=== PATIENT | female | born 1985 | race Caucasian/White ===

== ENCOUNTER → 2018-05-04 | Outpatient (CLI) | payer BC ==
[2018-05-04 11:15] LABS: HCT 35.8 % (34.0-46.0); HGB 12.1 gm/dL (11.4-16.0); MCHC 33.7 g/dL (31.0-37.0); Mean Platelet Volume 7.4; Platelet Count 164 k/uL (150-450); RBC 3.77 m/uL (3.80-5.40); RDW 13.1 % (11.5-15.5)
== END | disposition home or self-care (01) ==
LOC: LABWHC1 09:54
PROVIDERS: ATTEND Obstetrics & Gynecology
DX: Z34.82 Encounter for supervision of other normal pregnancy, second trimester (principal)
CPT/HCPCS: 36415; 82950; 85027

== ENCOUNTER 2018-08-23 06:00 | Inpatient (IN) | payer BC ==
[2018-08-23] MEDS ORDERED: CARBOPROST TROMETHAMINE 250 MCG/ML 1 ML AMP IM PRN ×2 (06:23→12:18)
[2018-08-23] MEDS ORDERED: LACTATED RINGERS 1,000 ML IV SCH (06:23)
[2018-08-23] MEDS ORDERED: METHYLERGONOVINE 0.2 MG/ML 1 ML AMP IM PRN ×2 (06:23→12:18)
[2018-08-23] MEDS ORDERED: OXYTOCIN 20 UNITS/1000 ML NS 1,000 ML IV SCH ×4 (06:23→16:45)
[2018-08-23] MEDS ORDERED: TERBUTALINE 1 MG/ML VIAL SQ PRN ×2 (06:23→12:18)
[2018-08-23] MEDS ORDERED: LIDOCAINE 0.5% (PF) 5 MG/ML (50 ML SDV) SQ PRN ×2 (06:23→12:18)
[2018-08-23] MEDS ORDERED: OXYTOCIN 10 UNIT/ML 1 ML VIAL IM PRN ×2 (06:23→12:18)
--- NOTE | 2018-08-23 06:25 | P.HPOB ---
History of Present Illness H&P Date: 08/23/18 Chief Complaint: Patient is presenting for requested induction of labor This patient is a pleasant 32-year-old 2 para 1 female estimated date of confinement 08/24/2018 estimated gestational age 39-6/7 weeks who presents to labor and delivery for requested induction of labor. Patient's care has been uncomplicated. Patient is uncomfortable request delivery at this time. Review of Systems Gastrointestinal: Reports heartburn Genitourinary: Reports Menstruation: Reports amenorrhea Past Medical History Past Medical History: No Reported History History of Any Multi-Drug Resistant Organisms: None Reported Past Surgical History: No Surgical Hx Reported Past Anesthesia/Blood Transfusion Reactions: No Reported Reaction Past Psychological History: ADD/ADHD, Depression Smoking Status: Former smoker Past Alcohol Use History: None Reported Past Drug Use History: None Reported Medications and Allergies Home Medications Medication Instructions Recorded Confirmed Type Hme-Cuap-Yfxsb Acid 1 each PO DAILY 04/20/14 04/20/14 History [-U Capsule] Acetaminophen-Codeine 300-30mg 1 - 2 each PO Q4HR PRN #30 tab 04/23/14 Rx [Tylenol w/codeine #3] Ibuprofen [Motrin] 600 mg PO Q6HR PRN #40 tab 04/23/14 Rx Allergies Allergy/AdvReac Type Severity Reaction Status Date / Time No Known Allergies Allergy Verified 04/20/14 16:47 Exam - OBG Physical Exam Abdomen: bowel sounds normal, no diffuse tenderness, no bruit present, no guarding noted, no hepatomegaly, no splenomegaly, no mass Vulva: both: normal Vagina: normal moisture, no discharge Cervix: no lesion (Cervix in the office is 1-2 cm dilated 50% effaced.), no discharge Uterus: enlarged (Fundal height is 38 cm.) Results blood work shows she is O positive, rubella immune, RPR nonreactive, hepatitis B negative, HIV is nonreactive, ultrasounds have been normal, group B strep was negative, Glucola was normal. Assessment and Plan (1) 40 weeks gestation of Narrative/Plan: This is a pleasant 32-year-old 2 para 1 female 39-6/7 weeks gestation who presents to labor and delivery for requested induction of labor plan is induction of labor and anticipate vaginal delivery. Current Visit: Yes Status: Acute Code(s): Z3A.40 - 40 WEEKS GESTATION OF SNOMED Code(s): 32927370 (2) Elective induction of labor planned Current Visit: Yes Status: Acute Code(s): AEA4364 - SNOMED Code(s): 543684970
[2018-08-23 06:40] LABS: Basophils # (A) 0.1 k/uL (0-0.2); Basophils % (A) 1 %; Eosinophils # (A) 0.2 k/uL (0-0.7); Eosinophils % (A) 2 %; HCT 40.2 % (34.0-46.0); HGB 13.2 gm/dL (11.4-16.0); Lymphocytes # (A) 2.6 k/uL (1.0-4.8); Lymphocytes % (A) 25 %; MCHC 32.8 g/dL (31.0-37.0); MCV 94.6 fL (80.0-100.0); Mean Platelet Volume 8.2; Monocytes # (A) 0.5 k/uL (0-1.0); Monocytes % (A) 5 %; Neutrophils # (A) 6.9 k/uL (1.3-7.7); Neutrophils % (A) 66 %; Platelet Count 176 k/uL (150-450); RBC 4.25 m/uL (3.80-5.40); RDW 13.9 % (11.5-15.5); WBC 10.5 k/uL (3.8-10.6)
[2018-08-23] MEDS ORDERED: SENNOSIDES-DOCUSATE SODIUM 1 EACH TAB PO SCH (11:23)
[2018-08-23] MEDS ORDERED: ACETAMINOPHEN TAB 325 MG TAB PO PRN ×2 (11:23→16:41)
[2018-08-23] MEDS ORDERED: LANOLIN CREAM 5 GM TUBE TOPICAL PRN ×2 (11:23→16:41)
[2018-08-23] MEDS ORDERED: SIMETHICONE 80 MG CHEWABLE PO PRN ×2 (11:23→16:41)
[2018-08-23] MEDS ORDERED: WITCH HAZEL 1 EACH MED..PAD TOPICAL PRN ×2 (11:23→16:41)
[2018-08-23] MEDS ORDERED: diphenhydrAMINE 50 MG/ML 1 ML VIAL IVP PRN ×2 (11:23→16:41)
[2018-08-23] MEDS ORDERED: BENZOCAINE/MENTHOL SPRAY 1 GM/SPRAY AEROSOL TOPICAL PRN ×2 (11:23→16:41)
[2018-08-23] MEDS ORDERED: IBUPROFEN 600 MG TAB PO PRN (11:23)
[2018-08-23] MEDS ORDERED: ZOLPIDEM 5 MG TAB PO PRN ×2 (11:23→16:41)
[2018-08-23] MEDS ORDERED: BISACODYL 10 MG SUPP RECTAL PRN ×2 (11:23→16:41)
[2018-08-23] MEDS ORDERED: HYDROCORTISONE 2.5% RECTAL CREAM 30 GM TUBE RECTAL PRN ×2 (11:23→16:41)
[2018-08-23] MEDS ORDERED: diphenhydrAMINE 25 MG CAP PO PRN ×2 (11:23→16:41)
[2018-08-23] MEDS ORDERED: BUTORPHANOL 1 MG/ML 1 ML VIAL IV PRN (11:44)
[2018-08-23] MEDS: LACTATED RINGERS 1,000 ML IV SCH ×2 (13:00→14:00)
[2018-08-23] MEDS ORDERED: SODIUM CHLORIDE 0.9% 100 ML BAG ONE (13:39)
[2018-08-23] MEDS ORDERED: fentaNYL (PF) 50 MCG/ML 5 ML AMP ONE (13:39)
[2018-08-23] MEDS ORDERED: ROPIVACAINE 5MG/ML 20ML VIAL ONE (13:39)
[2018-08-23] MEDS ORDERED: ROPIVACAINE 100 MG, fentaNYL (PF) 200 MCG in SODIUM CHLORIDE 0.9% 76 ML EPIDURAL ONE (14:31)
[2018-08-23] MEDS: IBUPROFEN 600 MG TAB PO PRN ×2 (17:40→23:49)
--- NOTE | 2018-08-23 18:25 | P.PROBDLV ---
Vaginal Delivery Note - . Vaginal Delivery Note: Normal vaginal delivery viable male infant Apgars 9 and 9 delivery time is 1630 hrs. Please see dictated H&P for intimate details of this patient's admission. In brief summary this is a pleasant 32-year-old 2 para 1 female 39-6/7 weeks gestation was admitted to labor and delivery for requested induction of labor. Patient is admitted and she is 1-2 cm dilated. She is artificial rupture membranes for clear fluid. Labor is induced with Pitocin per protocol. Labor progresses and she does receive a dose of Stadol and then an epidural for pain control. Patient thereafter quickly gets to complete. She pushes the head to the perineum and the posterior perineum was supported. We have controlled delivery of the infant's head over the intact perineum. Mouth and nares are bulb suctioned. There is no evidence of a nuchal cord. Gentle downward traction we then have delivery anterior posterior shoulder and rest this infant's body. This is a vigorous viable male infant Apgars are 9 and 9 delivery time was 1630 hrs. After delivery of the is late mother's abdomen. After the cord is nonpulsating is doubly clamped and cut. It appears to be trivascular. Placenta spontaneously delivered intact. Estimated blood loss is 100 mL. Inspection of the perineum shows no lacerations and no repairs needed. All counts are correct 3. There are no complications. Infant and mother stable delivery room.
[2018-08-23] MEDS: SENNOSIDES-DOCUSATE SODIUM 1 EACH TAB PO SCH (20:36)
[2018-08-24] MEDS: IBUPROFEN 600 MG TAB PO PRN ×2 (05:42→15:58)
--- NOTE | 2018-08-24 07:03 | P.PNOBGVD ---
Subjective - Subjective Patient reports: Reports appetite normal, Reports voiding normally, Reports pain well controlled, Reports ambulating normally : doing well Objective - Latest Vital Signs Latest vital signs: Vital Signs Temp Pulse Resp BP Pulse Ox 08/24/18 00:00 98.1 F 92 15 127/83 08/23/18 20:00 98 F 85 15 140/82 08/23/18 18:30 97.4 F L 103 H 16 118/70 08/23/18 18:00 97.6 F 91 16 117/66 97 08/23/18 17:25 97.5 F L 109 H 16 114/80 08/23/18 17:15 97.5 F L 96 16 126/77 08/23/18 17:00 97.4 F L 98 16 118/73 08/23/18 16:51 97.8 F 100 16 116/62 08/23/18 16:45 98 16 120/68 Intake and Output 08/23/18 08/24/18 08/24/18 22:59 06:59 14:59 Output Total 200 Balance -200 Output: Urine 200 Straight 100 Other: # Voids 1 - Exam Lungs: bilateral: normal Chest: Normal S1, Normal S2 Extremities: Present: normal Abdomen: Present: normal appearance, soft Uterus: Present: normal, firm Assessment and Plan Assessment: day #1. Patient is resting without complaints wishes to go home. Vital signs are stable she's afebrile. Uterus is firm nontender she's having normal lochia. My impression this is a normal course. Plan is to continue routine care discharge home later today. (1) 40 weeks gestation of Current Visit: Yes Status: Acute Code(s): Z3A.40 - 40 WEEKS GESTATION OF SNOMED Code(s): 63740074 (2) Elective induction of labor planned Current Visit: Yes Status: Acute Code(s): AWJ3581 - SNOMED Code(s): 158840248
--- NOTE | 2018-08-24 07:06 | P.DS ---
Providers Date of admission: 08/23/18 06:00 Expected date of discharge: 08/24/18 Attending physician: West Licona Primary care physician: Stated None - Discharge Diagnosis(es) (1) 40 weeks gestation of Current Visit: Yes Status: Acute (2) Elective induction of labor planned Current Visit: Yes Status: Acute Hospital Course: Please see dictated H&P for intimate details of this patient's admission. Brief summary this pleasant 32-year-old 2 para 1 female 39-6/7 weeks gestation is admitted to labor and delivery for requested induction of labor. Patient is induction of labor quickly goes on have a vaginal delivery viable male infant. Please see dictated delivery note. day #1 this patient is without complaints and wishes to go home. Patient's felt be sent for discharge home follow up with me in 6 weeks. Procedures: Induction of labor and normal vaginal delivery Patient Condition at Discharge: Good Plan - Discharge Summary New Discharge Prescriptions: New Ibuprofen [Motrin] 600 mg PO Q6HR PRN #40 tab PRN Reason: Mild Pain Or Fever >= 100.5 Discharge Medication List Ibuprofen [Motrin] 600 mg PO Q6HR PRN #40 tab 08/24/18 [Rx] Follow up Appointment(s)/Referral(s): West Licona MD [STAFF PHYSICIAN] - 10/08/18 8:45 am Patient Instructions/Handouts: Vaginal Delivery (DC) Activity/Diet/Wound Care/Special Instructions: No intercourse or anything per vagina for 6 weeks. Please call if any fever, chills, excessive vaginal bleeding, and/or abdominal pain. Discharge Disposition: HOME SELF-CARE
[2018-08-24 08:10] VITALS: RESP 16
[2018-08-24] MEDS: SENNOSIDES-DOCUSATE SODIUM 1 EACH TAB PO SCH (08:11)
[2018-08-24 15:58] VITALS: BP 122/87; PULSE 80; TEMP 98
== END 2018-08-24 17:45 | disposition home or self-care (01) | DRG 807 ==
LOC: 4FBP 06:00
PROVIDERS: ADMIT Obstetrics & Gynecology; ATTEND Obstetrics & Gynecology
PROC: 3E033VJ Introduction of Other Hormone into Peripheral Vein, Percutaneous Approach (ICD-10-PCS; principal; 2018-08-23)
PROC: 10E0XZZ Delivery of Products of Conception, External Approach (ICD-10-PCS; 2018-08-23)
PROC: 00HU33Z Insertion of Infusion Device into Spinal Canal, Percutaneous Approach (ICD-10-PCS; 2018-08-23)
PROC: 3E0R3NZ Introduction of Analgesics, Hypnotics, Sedatives into Spinal Canal, Percutaneous Approach (ICD-10-PCS; 2018-08-23)
DX: O80 Encounter for full-term uncomplicated delivery (principal); Z37.0 Single live birth; Z3A.39 39 weeks gestation of pregnancy
CPT/HCPCS: 85025; 86850; 86900; 86901

== ENCOUNTER → 2021-07-14 | Outpatient (CLI) | payer OTHER | END | disposition home or self-care (01) | LOC: LABWHC1 13:55 | PROVIDERS: ATTEND Internal Medicine Interventional Cardiology | DX: Z01.812 Encounter for preprocedural laboratory examination (principal); Z20.822 Contact with and (suspected) exposure to COVID-19; R10.9 Unspecified abdominal pain | CPT/HCPCS: U0003; C9803; U0005 ==

== ENCOUNTER → 2023-09-05 | Outpatient (CLI) | payer OTHER ==
[2023-09-05 11:00] LABS: HCT 42.1 % (37.2-46.3); HGB 13.7 g/dL (12.0-15.0); MCHC 32.5 g/dL (32.0-37.0); MCV 95.2 FL (80.0-97.0); Mean Platelet Volume 11.4 FL (9.5-12.2); NRBC Per 100 WBC 0 X 10*3/uL (0.00-0.01); Platelet Count 195 X 10*3/uL (140-440); RBC 4.42 X 10*6/uL (4.10-5.20); RDW 13.2 % (11.5-14.5); WBC 9.38 X 10*3/uL (4.50-10.00)
[2023-09-05 15:19] LABS: Blood Urea Nitrogen 10.5 mg/dL (9.0-27.0); Carbon Dioxide 25.2 mmol/L (21.6-31.8); Chloride 106 mmol/L (96-109); Chol/HDL Ratio 3.18 Ratio; Glucose 103 mg/dL (70-110); LDL Cholesterol,Calculated 70.8 mg/dL (0.0-131.0); Potassium 3.9 mmol/L (3.5-5.5); Sodium 140 mmol/L (135-145); VLDL Calculation 16.98 mg/dL (5.00-40.00)
[2023-09-05 15:20] LABS: ALT 16 U/L (8-44); AST 14 U/L (13-35); Albumin 4.1 g/dL (3.8-4.9); Albumin/Globulin Ratio 1.86 Ratio (1.60-3.17); Alkaline Phosphatase 56 U/L (41-126); Calcium 9.1 mg/dL (8.7-10.3); Globulin 2.2 g/dL (1.6-3.3); T4, Free (Free Thyroxine) 1.51 ng/dL (0.80-1.80); Total Bilirubin 0.5 mg/dL (0.3-1.2); Total Protein 6.3 g/dL (6.2-8.2)
--- NOTE | 2023-09-10 14:06 | MM ---
Reason for Exam: Screening (asymptomatic). Baseline mammogram. Patient History: Menarche at age 12. First Full-Term at age 28. Other cancer under age 50. Hormonal Contraceptives, from age 15 until age 28. Maternal grandmother had breast cancer at or over age 50. Maternal aunt had breast cancer under age 50. Last menstrual period: 08/22/2023 Risk Values: Kat 5 year model risk: 0.5%. NCI Lifetime model risk: 11.2%. Prior Study Comparison: Patient's first Mammogram. No prior studies available for comparison. Tissue Density: The breast tissue is heterogeneously dense. This may lower the sensitivity of mammography. Findings: Analyzed By CAD. Nodular asymmetric densities approximately 9:00 and upper outer quadrant right breast at a middle to posterior depth for further evaluation. Given the low-density appearance on axial view, underlying cysts may be present. Otherwise, no discrete abnormality seen. Overall Assessment: Incomplete: need additional imaging evaluation, BI-RAD 0 Management: Special View Mammogram of the right breast. Diagnostic Breast Ultrasound of the right breast. . Electronically signed and approved by: Chelsea Browning M.D. Radiologist
== END | disposition home or self-care (01) ==
LOC: RADMAMWWP 07:26
PROVIDERS: ATTEND Obstetrics & Gynecology
DX: Z12.31 Encounter for screening mammogram for malignant neoplasm of breast (principal); Z13.220 Encounter for screening for lipoid disorders; Z13.29 Encounter for screening for other suspected endocrine disorder; Z80.3 Family history of malignant neoplasm of breast
CPT/HCPCS: 77063; 77067; 80053; 80061; 82306; 83036; 84439; 84443; 84479; 85027

== ENCOUNTER → 2023-09-21 | Outpatient (CLI) | payer OTHER ==
--- NOTE | 2023-09-21 08:10 | MM ---
Reason for Exam: Additional evaluation requested from abnormal screening. Last screening mammogram was performed less than 1 month ago. Patient History: Menarche at age 12. First Full-Term at age 28. Premenopausal. Patient has history of breast feeding. Other cancer under age 50. Hormonal Contraceptives, from age 15 until age 28. Maternal grandmother had breast cancer at or over age 50. Maternal aunt had breast cancer under age 50. Risk Values: Kat 5 year model risk: 0.5%. NCI Lifetime model risk: 11.2%. Prior Study Comparison: 09/05/2023 Bilateral MG 3D screening mammo w/cad, [facility]. Tissue Density: Right: The breast tissue is heterogeneously dense. This may lower the sensitivity of mammography. Findings: Analyzed By CAD. Pattern appears stable. Under compression there is persistent 0.7 cm nodule 10:00 position 5 cm from the nipple. Ultrasound is recommended for. Overall Assessment: Incomplete: need additional imaging evaluation, BI-RAD 0 Management: Diagnostic Breast Ultrasound of the right breast. A negative mammogram report should not preclude additional follow up of suspicious palpable abnormalities. Patient should continue monthly self breast exam. A clinical breast exam by your physician is recommended on an annual basis and results should be correlated with mammographic findings. Electronically signed and approved by: Mao Kim D.O. Radiologis
--- NOTE | 2023-09-21 08:31 | USB ---
Reason for Exam: Additional evaluation requested from abnormal screening. Patient History: Menarche at age 12. First Full-Term at age 28. Premenopausal. Patient has history of breast feeding. Other cancer under age 50. Hormonal Contraceptives, from age 15 until age 28. Maternal grandmother had breast cancer at or over age 50. Maternal aunt had breast cancer under age 50. Risk Values: Kat 5 year model risk: 0.5%. NCI Lifetime model risk: 11.2%. Prior Study Comparison: 09/05/2023 Bilateral MG 3D screening mammo w/cad, [facility]. Findings: The upper outer quadrant of the right breast, the axilla of the right breast and the retroareolar of the right breast were scanned. There are couple of small hypoechoic areas measuring 0.7 x 0.4 x 0.5 cm 10:00 position 5 cm nipple. These may correlate with the mammographic findings. Findings may be small cyst too small to classify. Follow-up ultrasound and mammogram in 6 months is recommended.. Overall Assessment: Probably benign, BI-RAD 3 Management: Diagnostic Mammogram of the right breast in 6 months. Diagnostic Breast Ultrasound of the right breast in 6 months. A clinical breast exam by your physician is recommended on an annual basis and results should be correlated with mammographic findings. This exam should not preclude additional follow-up of suspicious palpable abnormalities. Results were given to the patient verbally at the time of exam. Electronically signed and approved by: Mao Kim D.O. Radiologis
== END | disposition home or self-care (01) ==
LOC: RADMAMWWP 07:27
PROVIDERS: ATTEND Obstetrics & Gynecology
DX: R92.331 Mammographic heterogeneous density, right breast (principal); Z80.3 Family history of malignant neoplasm of breast
CPT/HCPCS: 77061; 77065